=== PATIENT | male | born 1945 | race Caucasian/White ===

== ENCOUNTER 2018-04-28 05:26 | Day surgery (SDC) | payer OTHER, MEDICARE ==
[~2018-04-28] VITALS: Ht 170.2 cm; Wt 95.3 kg
--- NOTE | ~2018-04-28 | O ---
[facility] [place] [address] OPERATIVE REPORT Name: GEORGE MANCINI Room #: DEP [facility]..#: [id number] Admission: 04/28/18 Attend Phys: Florentin Arenas MD Discharge: 04/28/18 Date of : 43 Report #: [id number] THIS REPORT FOR: //name// CC: Florentin Blair DATE OF SERVICE: 04/28/2018 PREOPERATIVE DIAGNOSES: Deviated nasal septum with nasal airway obstruction, obstructive sleep apnea. POSTOPERATIVE DIAGNOSES: Deviated nasal septum with nasal airway obstruction, obstructive sleep apnea. OPERATIVE PROCEDURE: Nasal septoplasty. ANESTHESIA: By laryngeal mask. DESCRIPTION OF PROCEDURE: The patient was taken to the operating room and placed in supine position. General anesthesia was induced by laryngeal mask. Once adequate general anesthesia was obtained, local nasal anesthesia was induced by submucoperichondrial injection of 1% lidocaine with 1:100,000 epinephrine and topical application of cocaine solution. The patient was then draped in a sterile manner. The patient had a nasal septal deviation primarily to the left side. A hemitransfixion incision was placed on the left side of the nose, and the mucoperichondrium and mucoperiosteum were elevated off the septum. The cartilage was incised in front of the bony cartilaginous junction, and a portion of cartilage bone was removed from the midportion of the septum. Along the floor, there was a hypertrophic cartilage which was removed as a long strip, and the maxillary crest was infractured and rongeured. After these maneuvers, the septum sat more in the midline. The hemitransfixion incision was then closed with 4-0 chromic suture and a 4-0 plain mattress sutures placed as well. The patient tolerated the procedure well. Blood loss approximately 20 mL. The patient was then awoken and taken to the recovery room in stable condition for postoperative monitoring. <ELECTRONICALLY SIGNED> By: Florentin Arenas MD 04/28/18 1704 0926 0950 Florentin Arenas MD /nt
--- NOTE | ~2018-04-28 | H ---
[facility] [place] [place] [address] HISTORY AND PHYSICAL Name: GEORGE MANCINI Room #: REG [facility]..#: [id number] Admission: 04/28/18 Attend Phys: Florentin Arenas MD Discharge: Date of : 43 Report #: [id number] THIS REPORT FOR: //name// CC: Florentin Blair His procedure is scheduled for 04/28. HISTORY OF PRESENT ILLNESS: The patient has a plugged up sensation in his nose. He thinks that this has been going on for the most part over the winter. He feels plugged up and congested. He has asthma and uses QVAR and Combivent twice a day. He has been using Flonase. He has obstructive sleep apnea and uses a CPAP machine. He has done so for 15 years. He has been undergoing allergy desensitization treatment for 30 years. PAST MEDICAL HISTORY: As above. PHYSICAL EXAMINATION: HEENT: He has a very severely deviated nasal septum to the left side with the septum actually touching the lateral wall of the nose. There is irritation and blood. He has protrusion of the anterior cartilaginous septum into the right nasal vestibule. His oropharynx and oral cavity were clear. IMPRESSION: Deviated nasal septum with nasal airway obstruction and obstructive sleep apnea. PLAN: Nasal septoplasty. <ELECTRONICALLY SIGNED> By: Florentin Arenas MD 04/28/18 0812 1427 1440 Florentin Arenas MD /daksha
[~2018-04-28 05:26] MED LIST: ASPIRIN325 PO; CALCIUM WITH V1 EAC1 PO; COMBIVENT INH; FISH OIL 1,001000 M2 PO; FLOMAX0.4 MG PO; FLONASE 0.05%50 MCG NASAL; GLUCOSAMINE CH1 EAC1 PO; KEPPRA1000 MG PO; LANSOPRAZOLE30 MG PO; LOPRESSOR 50 MG50 M1; NIASPAN ER 101000 M1; NITROGLYCERIN0.4 MG SUBLING; POLICOSANOL PO; PROVIGIL 200 M200 M1 PO; QVAR8.7 G1 INH; VENTOLIN HFA 1818 GM INH; VITAMIN B-6100 MG PO; VITAMIN B122500 MCG PO
[2018-04-28 08:00] VITALS: BP 137/73
[2018-04-28 10:03] VITALS: BP 137/73
== END 2018-04-28 10:37 | disposition home or self-care (01) ==
LOC: OR 05:26 → TBA 09:51 → OR 10:37
DX: J34.2 Deviated nasal septum (principal); J34.89 Other specified disorders of nose and nasal sinuses; G47.33 Obstructive sleep apnea (adult) (pediatric); J45.909 Unspecified asthma, uncomplicated; K21.9 Gastro-esophageal reflux disease without esophagitis; Z98.890 Other specified postprocedural states; Z88.8 Allergy status to other drugs, medicaments and biological substances; Z87.891 Personal history of nicotine dependence; Z95.5 Presence of coronary angioplasty implant and graft; Z95.1 Presence of aortocoronary bypass graft; Z98.42 Cataract extraction status, left eye; Z88.2 Allergy status to sulfonamides; Z79.82 Long term (current) use of aspirin; Z79.899 Other long term (current) drug therapy
CPT/HCPCS: 50010; 50101; 50386; 50398; 56524; 56528; 62110; 62900; 64037; 70005

== ENCOUNTER → 2020-06-24 | Outpatient (CLI) | payer OTHER, MEDICARE | LOC: SJCVC 13:35 | PROVIDERS: ATTEND Internal Medicine | DX: I25.709 Atherosclerosis of coronary artery bypass graft(s), unspecified, with unspecified angina pectoris (principal); E78.5 Hyperlipidemia, unspecified; G47.33 Obstructive sleep apnea (adult) (pediatric); I65.23 Occlusion and stenosis of bilateral carotid arteries; R19.8 Other specified symptoms and signs involving the digestive system and abdomen; G40.909 Epilepsy, unspecified, not intractable, without status epilepticus; J45.909 Unspecified asthma, uncomplicated; K21.9 Gastro-esophageal reflux disease without esophagitis; E66.9 Obesity, unspecified; M81.0 Age-related osteoporosis without current pathological fracture; Z79.899 Other long term (current) drug therapy; Z79.82 Long term (current) use of aspirin; Z99.89 Dependence on other enabling machines and devices; Z87.891 Personal history of nicotine dependence ==

== ENCOUNTER → 2020-07-08 | Outpatient (CLI) | payer OTHER, MEDICARE | LOC: SJCVCIMAG 09:00 | PROVIDERS: ATTEND Internal Medicine | DX: I65.23 Occlusion and stenosis of bilateral carotid arteries (principal); R19.8 Other specified symptoms and signs involving the digestive system and abdomen; I25.10 Atherosclerotic heart disease of native coronary artery without angina pectoris; I73.9 Peripheral vascular disease, unspecified; I70.0 Atherosclerosis of aorta ==

== ENCOUNTER → 2020-07-18 | Outpatient (CLI) | payer OTHER, MEDICARE | LOC: CAT 14:45 | PROVIDERS: ATTEND Internal Medicine | DX: Z12.2 Encounter for screening for malignant neoplasm of respiratory organs (principal); Z87.891 Personal history of nicotine dependence ==

== ENCOUNTER → 2020-07-26 | Outpatient (CLI) | payer OTHER, MEDICARE ==
--- NOTE | 2020-08-03 00:07 | PATH ---
[facility] [place] [address] PATHOLOGY RPT PROCEDURE Name: GEORGE JIMENEZ Room #: REG [facility].#: [id number] Admission: 07/26/20 Date of : 43 Discharge: Report #: [id number] Path Case #: [id number] [facility] Accession Number: [id number] . 01 Material submitted: . lymph node - LEFT NECK LYMPH NODE BX. Modifiers: left . 02 Diagnosis: Special studies report received from [facility], [address] [place] [address], [address], [place], [address], on case [id number], labeled with their number [id number], dated 07/28/2020. . Flow Cytometry: Hematologic Neoplasia Assessment . Clinical History . . Indication for Study Evaluation for hematolymphoid neoplasia . Specimen Lymph Node, Left Neck . Viability 87% (7AAD exclusion) . 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 The abnormal B-cells, comprising 42% of the total leukocytes are lambda restricted, co-express CD5 with CD19, CD20, CD23 and exhibit minimal detectable immunoreactivity for FMC-7 and CD38. If clinically indicated, FISH testing (CLL panel), IgVH somatic hypermutation testing, and/or ZAP-70 testing are available. Clinical and histopathologic correlation are recommended for full interpretation. . Populations Analyzed Abnormal B-cells: 42% Scatter properties compatible with small to intermediate cell size, cells characterized as: CD45+, CD19+, CD20+ (dim), CD5+, CD10-, CD23+, FMC7-/+, CD30-, CD38-/+, sIg lambda+ (dim) (K/L= 1:209) Remaining 20% B-cells: 0.04%, polytypic/polyclonal sIg light [address] [address] PATHOLOGY RPT PROCEDURE Name: GEORGE JIMENEZ [facility] #: [facility] [id number] Admission: 07/26/20 Date of : 43 Discharge: Report #: [id number] Path Case #: [id number] Lymphocytes: chain pattern T-cells: no significant abnormalities of the markers tested CD4:CD8: 4.4:1 CD45 Negative 31% No significant reactivity with the markers tested Events/Debris: (may represent non-hematolymphoid cells, degenerated cells, debris, unlysed red blood cells, etc.) . Morphologic Evaluation A slide was reviewed for quality assurance practice manager purposes only. . Specimen Description Total Cell Yield: 0.18 X 10 and 6 . Reagent(s) Used CD3, CD4, CD5, CD8, CD10, CD19, CD20, CD23, CD38, CD45, FMC-7, kappa, lambda . at [employer], [employer]. Chandan Quintero MD Pathologist . . Intended Use Flow cytometry is optimally used to immunophenotypically characterize abnormal populations when they are detected. Negative flow cytometry results do not exclude lymphoma or neoplasia. Possible false negative flow cytometry results may occur in, but are not limited to, the following: neoplastic cells in Hodgkin lymphoma are not typically adequately represented by routine clinical flow cytometry; neoplastic cells may be lost or inadequately represented due to degeneration, sample processing, sampling artifact, or patchy involvement; plasma cells are typically underrepresented by flow cytometry; immature cells/blasts may be underrepresented due to hemodilution; myeloproliferative disorders and low grade myelodysplasia may not have immunophenotypic abnormalities or increased blasts. Correlation with all available clinical, laboratory, and morphologic data is always necessary to assess for the possibility of false negative flow cytometry results and to establish a diagnosis. Each marker in this analysis was used to assess for potential antigenic abnormalities or to evaluate detected abnormalities. . Any image or images that accompany this report are sales representative groceries images only and should not be used to render a diagnosis. . Disclaimer(s) This test was developed and its performance [place] [address] PATHOLOGY RPT PROCEDURE Name: GEORGE JIMENEZ Room #: REG [facility] Dong#: [id number] Admission: 07/26/20 Date of : 43 Discharge: Report #: [id number] Path Case #: [id number] [employer]. It has not been cleared or approved by the Food and Drug Administration. . [facility] is a business unit of [employer] a wholly-owned subsidiary of [employer]. . This test was performed at [facility]. at [address], [place], [address] - Service Desk Director: Santhosh Mandujano MD. . For inquiries, the physician may contact Lab: [phone] . A complete copy of the report is on file. . Professional services performed by [employer]. at [address], [place] [address]. Technical services performed by [employer] at [address], [place] [address]. . (JMQ:amj 07/28/2020) . [place] 08/01/2020 0945 Local . 02 Electronically signed: . Karen Phillips MD, Pathologist NPI- [id number] . 01 Gross description: . The specimen is received in RPMI solution, labeled "Murguia Jimenez, left neck node biopsy". Received is a single needle core of pale shrestha tissue measuring 1.4 cm in length by 0.1 cm in diameter. The specimen is forwarded to an outside laboratory for flow cytometry studies. (CAA; 07/26/2020) QAC/QAC 07/26/2020 1613 Local . 02 Pathologist provided ICD-10: Z03.89 . 02 CPT . 475115 Specimen Comment: A courtesy copy of this report has been sent to [phone], [phone] Specimen Comment: 2024 Specimen Comment: Report sent to / DR VELASQUEZ Performed at: 01 [facility] [address] [place] [address] PATHOLOGY RPT PROCEDURE Name: GEORGE JIMENEZ Room #: REG [facility] Maria R.#: [id number] Admission: 07/26/20 Date of : 43 Discharge: Report #: [id number] Path Case #: [id number] [facility] [address], [place], [place] [id number] MD Gordon Dugan MD Phone: [phone] Performed at: 02 [facility] [place] [address] [place] [id number] MD Karen Phillips MD Phone: [phone]
== END | disposition home or self-care (01) ==
LOC: ULTRA 08:45
PROVIDERS: ATTEND Otolaryngology Plastic Surgery within the Head & Neck
DX: R59.0 Localized enlarged lymph nodes (principal); C83.01 Small cell B-cell lymphoma, lymph nodes of head, face, and neck; Z88.2 Allergy status to sulfonamides; Z88.8 Allergy status to other drugs, medicaments and biological substances; Z79.899 Other long term (current) drug therapy; Z98.890 Other specified postprocedural states

== ENCOUNTER → 2020-12-21 | Outpatient (CLI) | payer OTHER, MEDICARE | LOC: SJCVC 14:31 | PROVIDERS: ATTEND Internal Medicine | DX: I25.119 Atherosclerotic heart disease of native coronary artery with unspecified angina pectoris (principal); I50.32 Chronic diastolic (congestive) heart failure; E78.5 Hyperlipidemia, unspecified; G47.33 Obstructive sleep apnea (adult) (pediatric); I65.23 Occlusion and stenosis of bilateral carotid arteries; G43.909 Migraine, unspecified, not intractable, without status migrainosus; J45.909 Unspecified asthma, uncomplicated; N40.0 Benign prostatic hyperplasia without lower urinary tract symptoms; K21.9 Gastro-esophageal reflux disease without esophagitis; E66.9 Obesity, unspecified; M19.90 Unspecified osteoarthritis, unspecified site; Z95.5 Presence of coronary angioplasty implant and graft; Z99.89 Dependence on other enabling machines and devices; Z98.890 Other specified postprocedural states; Z96.651 Presence of right artificial knee joint; Z95.1 Presence of aortocoronary bypass graft; Z88.8 Allergy status to other drugs, medicaments and biological substances; Z79.82 Long term (current) use of aspirin; Z79.899 Other long term (current) drug therapy; Z87.891 Personal history of nicotine dependence; Z82.49 Family history of ischemic heart disease and other diseases of the circulatory system ==

== ENCOUNTER → 2021-01-17 | Outpatient (CLI) | payer OTHER, MEDICARE | LOC: SJCVC 14:17 | PROVIDERS: ATTEND Internal Medicine | DX: R94.31 Abnormal electrocardiogram [ECG] [EKG] (principal); I25.119 Atherosclerotic heart disease of native coronary artery with unspecified angina pectoris; I50.32 Chronic diastolic (congestive) heart failure; E78.5 Hyperlipidemia, unspecified; G47.33 Obstructive sleep apnea (adult) (pediatric); I65.23 Occlusion and stenosis of bilateral carotid arteries; G40.909 Epilepsy, unspecified, not intractable, without status epilepticus; Z87.891 Personal history of nicotine dependence; Z88.2 Allergy status to sulfonamides; Z88.8 Allergy status to other drugs, medicaments and biological substances; Z91.048 Other nonmedicinal substance allergy status; Z79.82 Long term (current) use of aspirin; Z79.899 Other long term (current) drug therapy ==

== ENCOUNTER → 2021-03-14 | Outpatient (CLI) | payer OTHER, MEDICARE | LOC: SJCVCIMAG 11:19 | PROVIDERS: ATTEND Internal Medicine | DX: I05.8 Other rheumatic mitral valve diseases (principal); R94.31 Abnormal electrocardiogram [ECG] [EKG]; I25.119 Atherosclerotic heart disease of native coronary artery with unspecified angina pectoris; I11.0 Hypertensive heart disease with heart failure; I50.32 Chronic diastolic (congestive) heart failure; E78.5 Hyperlipidemia, unspecified; J44.9 Chronic obstructive pulmonary disease, unspecified; G47.33 Obstructive sleep apnea (adult) (pediatric); I65.23 Occlusion and stenosis of bilateral carotid arteries; G43.909 Migraine, unspecified, not intractable, without status migrainosus; C91.10 Chronic lymphocytic leukemia of B-cell type not having achieved remission; N40.0 Benign prostatic hyperplasia without lower urinary tract symptoms; K21.9 Gastro-esophageal reflux disease without esophagitis; E66.9 Obesity, unspecified; M81.0 Age-related osteoporosis without current pathological fracture; Z99.89 Dependence on other enabling machines and devices; Z95.1 Presence of aortocoronary bypass graft; Z95.5 Presence of coronary angioplasty implant and graft; Z98.890 Other specified postprocedural states; Z88.8 Allergy status to other drugs, medicaments and biological substances; Z79.82 Long term (current) use of aspirin; Z79.899 Other long term (current) drug therapy; Z87.891 Personal history of nicotine dependence; Z82.49 Family history of ischemic heart disease and other diseases of the circulatory system ==

== ENCOUNTER → 2021-03-14 | Outpatient (CLI) | payer OTHER, MEDICARE | LOC: RAD 16:11 | PROVIDERS: ATTEND Internal Medicine | DX: R06.02 Shortness of breath (principal); M19.012 Primary osteoarthritis, left shoulder ==

== ENCOUNTER → 2021-04-20 | Outpatient (CLI) | payer OTHER, MEDICARE | LOC: SJCVC 12:46 | PROVIDERS: ATTEND Internal Medicine | DX: I25.119 Atherosclerotic heart disease of native coronary artery with unspecified angina pectoris (principal); I50.32 Chronic diastolic (congestive) heart failure; E78.5 Hyperlipidemia, unspecified; J44.9 Chronic obstructive pulmonary disease, unspecified; G47.33 Obstructive sleep apnea (adult) (pediatric); I65.23 Occlusion and stenosis of bilateral carotid arteries; G40.909 Epilepsy, unspecified, not intractable, without status epilepticus; R53.82 Chronic fatigue, unspecified; C91.10 Chronic lymphocytic leukemia of B-cell type not having achieved remission; R26.89 Other abnormalities of gait and mobility; K21.9 Gastro-esophageal reflux disease without esophagitis; M81.0 Age-related osteoporosis without current pathological fracture; N40.0 Benign prostatic hyperplasia without lower urinary tract symptoms; E66.9 Obesity, unspecified; Z95.1 Presence of aortocoronary bypass graft; Z99.89 Dependence on other enabling machines and devices; Z88.8 Allergy status to other drugs, medicaments and biological substances; Z79.82 Long term (current) use of aspirin; Z79.899 Other long term (current) drug therapy; Z87.891 Personal history of nicotine dependence; Z82.49 Family history of ischemic heart disease and other diseases of the circulatory system ==

== ENCOUNTER → 2021-07-18 | Outpatient (CLI) | payer OTHER, MEDICARE | LOC: CAT 11:17 | PROVIDERS: ATTEND Internal Medicine | DX: Z12.2 Encounter for screening for malignant neoplasm of respiratory organs (principal); I25.10 Atherosclerotic heart disease of native coronary artery without angina pectoris; I70.0 Atherosclerosis of aorta; M47.814 Spondylosis without myelopathy or radiculopathy, thoracic region; Z87.891 Personal history of nicotine dependence ==

== ENCOUNTER → 2021-07-20 | Outpatient (CLI) | payer OTHER, MEDICARE | LOC: SJCVCIMAG 08:47 | PROVIDERS: ATTEND Internal Medicine | DX: I08.1 Rheumatic disorders of both mitral and tricuspid valves (principal); I65.23 Occlusion and stenosis of bilateral carotid arteries; I25.119 Atherosclerotic heart disease of native coronary artery with unspecified angina pectoris; I50.32 Chronic diastolic (congestive) heart failure; E78.5 Hyperlipidemia, unspecified; J44.9 Chronic obstructive pulmonary disease, unspecified; G47.33 Obstructive sleep apnea (adult) (pediatric); G40.909 Epilepsy, unspecified, not intractable, without status epilepticus; C91.10 Chronic lymphocytic leukemia of B-cell type not having achieved remission; K21.9 Gastro-esophageal reflux disease without esophagitis; M81.0 Age-related osteoporosis without current pathological fracture; Z99.89 Dependence on other enabling machines and devices; Z87.891 Personal history of nicotine dependence; Z79.82 Long term (current) use of aspirin; Z79.899 Other long term (current) drug therapy; Z88.2 Allergy status to sulfonamides; Z88.8 Allergy status to other drugs, medicaments and biological substances; Z95.5 Presence of coronary angioplasty implant and graft; Z95.1 Presence of aortocoronary bypass graft ==

== ENCOUNTER → 2022-01-09 | Outpatient (CLI) | payer OTHER, MEDICARE | LOC: SJCVC 13:15 | PROVIDERS: ATTEND Internal Medicine | DX: I25.119 Atherosclerotic heart disease of native coronary artery with unspecified angina pectoris (principal); I50.32 Chronic diastolic (congestive) heart failure; E78.5 Hyperlipidemia, unspecified; G47.33 Obstructive sleep apnea (adult) (pediatric); C91.10 Chronic lymphocytic leukemia of B-cell type not having achieved remission; J45.909 Unspecified asthma, uncomplicated; K21.9 Gastro-esophageal reflux disease without esophagitis; Z99.89 Dependence on other enabling machines and devices; Z87.891 Personal history of nicotine dependence; Z79.82 Long term (current) use of aspirin; Z79.899 Other long term (current) drug therapy; Z88.2 Allergy status to sulfonamides; Z88.8 Allergy status to other drugs, medicaments and biological substances; Z95.5 Presence of coronary angioplasty implant and graft; Z95.1 Presence of aortocoronary bypass graft ==